=== PATIENT | male | born 1945 | race Caucasian/White ===

== ENCOUNTER 2022-02-08 12:40 | Outpatient (CLI) | payer MEDICARE ==
[2022-02-08 14:03] LABS: ALT (SGPT) 12 U/L (8-55); AST (SGOT) 20 U/L (5-34); Albumin 4.2 g/dL (3.4-4.8); Alkaline Phosphatase 83 U/L (40-110); Anion Gap 12 mmol/L (10-20); BUN (Urea Nitrogen) 13 mg/dL (8.4-25.7); Bilirubin, Total 0.6 mg/dL (0.2-1.2); Calc. Creatinine Clearance 0 mL/min (70-130); Calcium 8.9 mg/dL (7.8-10.44); Carbon Dioxide 24 mmol/L (23-31); Chloride 104 mmol/L (98-107); Globulin 3.1 g/dL (2.4-3.5); Glucose 92 mg/dL (83-110); Potassium 4.4 mmol/L (3.5-5.1); Protein, Total 7.3 g/dL (5.8-8.1); Sodium 136 mmol/L (136-145)
[2022-02-08 14:06] LABS: #Eosinphils 0.2 10x3/uL (0.0-0.5); #Monocytes 0.8 10x3/uL (0.0-1.1); #Neutrophils 4.8 10x3/uL (1.5-8.4); %Basophils 0.6 % (0.0-2.0); %Eosinophils 2.5 % (0.0-6.0); %Lymphocytes 19.2 % (18.0-47.0); %Monocytes 10.5 % (0.0-10.0); %Neutrophils 66.9 % (40.0-75.0); Hemoglobin 9.2 g/dL (13.5-17.5); Mean Corpuscular HGB CONC 29.7 g/dL (32.0-36.0); Mean Corpuscular Volume 70.8 fl (81.2-95.1); Platelet Count 315 10x3/uL (150-450); RBC Distribution Width 15.5 % (11.5-14.5); Red Blood Cell (RBC) Count 4.38 10x6/uL (4.32-5.72); White Blood Cell (WBC) Count 7.1 10x3/uL (3.5-10.5)
[2022-02-08 14:35] LABS: Hypochromia SLIGHT = 6-15 cells (100X) (0-5/hpf); Ovalocytes SLIGHT = 2-5 cells (100X) (0-1/hpf); Platelet Morphology Comment Appears Adequate
[2022-02-08 23:35] LABS: SARS-CoV-2 PCR by NAA Not Detected (NotDetected)
== END 2022-02-08 12:41 | disposition home or self-care (01) ==
LOC: LABBT 12:40
PROVIDERS: ATTEND Internal Medicine Cardiovascular Disease
DX: Z01.812 Encounter for preprocedural laboratory examination (principal); Z20.822 Contact with and (suspected) exposure to COVID-19
CPT/HCPCS: 80053; 85025; U0003; U0005

== ENCOUNTER 2022-02-23 16:32 | Outpatient (CLI) | payer MEDICARE ==
[2022-02-23 17:15] LABS: #Basophils 0.1 10x3/uL (0.0-0.2); #Eosinphils 0.2 10x3/uL (0.0-0.5); #Monocytes 0.7 10x3/uL (0.0-1.1); #Neutrophils 3.3 10x3/uL (1.5-8.4); %Basophils 0.9 % (0.0-2.0); %Eosinophils 3.3 % (0.0-6.0); %Lymphocytes 22.4 % (18.0-47.0); %Monocytes 12.7 % (0.0-10.0); %Neutrophils 60.5 % (40.0-75.0); Hemoglobin 8.5 g/dL (13.5-17.5); Mean Corpuscular HGB CONC 29.1 g/dL (32.0-36.0); Mean Corpuscular Hemoglobin 20.9 pg (27.0-33.0); Mean Corpuscular Volume 71.9 fl (81.2-95.1); Mean Platelet Volume 9.4 fl (7.4-10.4); Platelet Count 276 10x3/uL (150-450); RBC Distribution Width 16.6 % (11.5-14.5); Red Blood Cell (RBC) Count 4.06 10x6/uL (4.32-5.72); White Blood Cell (WBC) Count 5.4 10x3/uL (3.5-10.5)
[2022-02-23 17:29] LABS: Anisocytosis SLIGHT = 6-15 cells (100X) (0-5/hpf); Hypochromia SLIGHT = 6-15 cells (100X) (0-5/hpf); Polychromasia SLIGHT = 2-3 cells (100X) (0-2/hpf)
[2022-02-23 17:30] LABS: Elliptocytes SLIGHT = 2-5 cells (100X) (0-1/hpf); Ovalocytes SLIGHT = 2-5 cells (100X) (0-1/hpf)
[2022-02-23 17:31] LABS: Platelet Morphology Comment Appears Adequate; Schistocytes SLIGHT = 2-5 cells (100X) (0-1/hpf)
[2022-02-23 17:33] LABS: Iron 16 ug/dL (65-175); Iron Binding Capacity, Total 475 mcg/dL (261-462)
[2022-02-24 00:25] LABS: SARS-CoV-2 PCR by NAA Not Detected (NotDetected)
== END 2022-02-23 16:33 | disposition home or self-care (01) ==
LOC: LABBT 16:32
PROVIDERS: ATTEND Internal Medicine Gastroenterology
DX: Z01.812 Encounter for preprocedural laboratory examination (principal); Z20.822 Contact with and (suspected) exposure to COVID-19
CPT/HCPCS: 82728; 82784; 83540; 83550; 85025; U0003; U0005

== ENCOUNTER → 2022-02-27 | Day surgery (SDC) | payer MEDICARE, OTHER ==
[2022-02-24 10:09] VITALS: BMI 25.0
[~2022-02-27] MED LIST: Iron, Sodium Ferric Gluconate 250 MG in Sodium Chloride 0.9% 250 ML 250 ML IVPB SCH; Lidocaine 1% PF 5 ML VIAL ONE; PROPOFOL 200 MG/20 ML VIAL ONE
[2022-02-27 11:36] LABS: ALT (SGPT) 12 U/L (8-55); AST (SGOT) 21 U/L (5-34); Albumin 3.7 g/dL (3.4-4.8); Alkaline Phosphatase 75 U/L (40-110); Anion Gap 10 mmol/L (10-20); BUN (Urea Nitrogen) 6 mg/dL (8.4-25.7); Bilirubin, Total 0.6 mg/dL (0.2-1.2); Calc. Creatinine Clearance 105 mL/min (70-130); Calcium 8.7 mg/dL (7.8-10.44); Carbon Dioxide 25 mmol/L (23-31); Chloride 105 mmol/L (98-107); Globulin 2.8 g/dL (2.4-3.5); Glucose 101 mg/dL (83-110); Potassium 4.1 mmol/L (3.5-5.1); Protein, Total 6.5 g/dL (5.8-8.1); Sodium 136 mmol/L (136-145)
[2022-03-04 18:35] LABS: EliA Celiac New Method **** NEW METHOD ****
== END | disposition home or self-care (01) ==
LOC: SDC 06:53
PROVIDERS: ATTEND Internal Medicine Gastroenterology
PROC: 0W3P8ZZ Control Bleeding in Gastrointestinal Tract, Via Natural or Artificial Opening Endoscopic (ICD-10-PCS; principal; 2022-02-27)
PROC: 0DB98ZX Excision of Duodenum, Via Natural or Artificial Opening Endoscopic, Diagnostic (ICD-10-PCS; 2022-02-27)
PROC: 0DB98ZX Excision of Duodenum, Via Natural or Artificial Opening Endoscopic, Diagnostic (ICD-10-PCS; 2022-02-27)
PROC: 0W3P8ZZ Control Bleeding in Gastrointestinal Tract, Via Natural or Artificial Opening Endoscopic (ICD-10-PCS; 2022-02-27)
PROC: 0DBK8ZX Excision of Ascending Colon, Via Natural or Artificial Opening Endoscopic, Diagnostic (ICD-10-PCS; 2022-02-27)
PROC: 0DBL8ZX Excision of Transverse Colon, Via Natural or Artificial Opening Endoscopic, Diagnostic (ICD-10-PCS; 2022-02-27)
PROC: 0DBM8ZX Excision of Descending Colon, Via Natural or Artificial Opening Endoscopic, Diagnostic (ICD-10-PCS; 2022-02-27)
PROC: 0DBH8ZX Excision of Cecum, Via Natural or Artificial Opening Endoscopic, Diagnostic (ICD-10-PCS; 2022-02-27)
PROC: 3E0H8KZ Introduction of Other Diagnostic Substance into Lower GI, Via Natural or Artificial Opening Endoscopic (ICD-10-PCS; 2022-02-27)
DX: K31.811 Angiodysplasia of stomach and duodenum with bleeding (principal); K31.89 Other diseases of stomach and duodenum; C18.6 Malignant neoplasm of descending colon; D12.2 Benign neoplasm of ascending colon; D12.3 Benign neoplasm of transverse colon; D12.5 Benign neoplasm of sigmoid colon; K57.30 Diverticulosis of large intestine without perforation or abscess without bleeding; D50.9 Iron deficiency anemia, unspecified; R59.0 Localized enlarged lymph nodes; Z87.891 Personal history of nicotine dependence; Z79.899 Other long term (current) drug therapy
CPT/HCPCS: 36415; 71260; 74177; 80053; 82378; 83516; 88305; J2704; J2916; J7050

== ENCOUNTER 2022-03-10 15:18 | Outpatient (CLI) | payer MEDICARE, OTHER ==
[2022-03-11 12:39] LABS: SARS-CoV-2 PCR by NAA Not Detected (NotDetected)
== END 2022-03-10 15:19 | disposition home or self-care (01) ==
LOC: LABBT 15:18
PROVIDERS: ATTEND Internal Medicine Cardiovascular Disease
DX: Z20.822 Contact with and (suspected) exposure to COVID-19 (principal)
CPT/HCPCS: U0003; U0005

== ENCOUNTER 2022-03-13 05:28 | Day surgery (SDC) | payer MEDICARE, OTHER ==
[2022-03-10 13:01] VITALS: BMI 24.2
[2022-03-13] MEDS ORDERED: Nitroglycerin 100MG/250ML BOT 250 ML ONE (06:42)
[2022-03-13] MEDS ORDERED: Verapamil 5 MG/2 ML VIAL ONE (06:42)
[2022-03-13] MEDS ORDERED: Lidocaine 1% (PF) 30 ML VIAL ONE (06:42)
[2022-03-13] MEDS ORDERED: Heparin 10,000 UNITS/ 10 ML VIAL ONE (06:42)
[2022-03-13] MEDS ORDERED: Midazolam HCl 2 mg/2 ml Vial ONE (07:46)
[2022-03-13] MEDS ORDERED: Fentanyl 100 MCG/2 ML VIAL ONE (07:46)
[2022-03-13] MEDS ORDERED: Iopamidol 370 76% 100 ML VIAL ONE (09:29)
== END 2022-03-13 13:23 | disposition home or self-care (01) ==
LOC: CCL 05:28
PROVIDERS: ATTEND Internal Medicine Cardiovascular Disease
PROC: 4A023N7 Measurement of Cardiac Sampling and Pressure, Left Heart, Percutaneous Approach (ICD-10-PCS; principal; 2022-03-13)
PROC: B2111ZZ Fluoroscopy of Multiple Coronary Arteries using Low Osmolar Contrast (ICD-10-PCS; 2022-03-13)
DX: R06.09 Other forms of dyspnea (principal); R94.39 Abnormal result of other cardiovascular function study; I25.10 Atherosclerotic heart disease of native coronary artery without angina pectoris; E78.5 Hyperlipidemia, unspecified; K90.0 Celiac disease; C18.9 Malignant neoplasm of colon, unspecified; D63.0 Anemia in neoplastic disease; Z87.891 Personal history of nicotine dependence; Z79.899 Other long term (current) drug therapy
CPT/HCPCS: 85347; 93458; C1753; C1769; J1644; J2001; J2250; J3010; Q9967

== ENCOUNTER 2022-03-24 11:16 | Outpatient (CLI) | payer MEDICARE, OTHER ==
[2022-03-24 12:44] LABS: #Eosinphils 0.1 10x3/uL (0.0-0.5); #Monocytes 0.7 10x3/uL (0.0-1.1); #Neutrophils 2.6 10x3/uL (1.5-8.4); %Basophils 0.4 % (0.0-2.0); %Eosinophils 2.8 % (0.0-6.0); %Monocytes 13.7 % (0.0-10.0); %Neutrophils 51.9 % (40.0-75.0); Hemoglobin 11.8 g/dL (13.5-17.5); Mean Corpuscular HGB CONC 30.6 g/dL (32.0-36.0); Mean Corpuscular Hemoglobin 23.9 pg (27.0-33.0); Mean Corpuscular Volume 77.9 fl (81.2-95.1); Mean Platelet Volume 9.7 fl (7.4-10.4); Platelet Count 230 10x3/uL (150-450); RBC Distribution Width 25.3 % (11.5-14.5); Red Blood Cell (RBC) Count 4.94 10x6/uL (4.32-5.72)
[2022-03-24 12:54] LABS: Anion Gap 17 mmol/L (10-20); BUN (Urea Nitrogen) 15 mg/dL (8.4-25.7); Calc. Creatinine Clearance 0 mL/min (70-130); Calcium 9.2 mg/dL (7.8-10.44); Carbon Dioxide 23 mmol/L (23-31); Chloride 103 mmol/L (98-107); Glucose 93 mg/dL (83-110); Potassium 4.5 mmol/L (3.5-5.1); Sodium 138 mmol/L (136-145)
[2022-03-24 23:49] LABS: SARS-CoV-2 PCR by NAA Not Detected (NotDetected)
== END 2022-03-24 11:17 | disposition home or self-care (01) ==
LOC: LABBT 11:16
PROVIDERS: ATTEND Surgery
DX: Z01.812 Encounter for preprocedural laboratory examination (principal); C18.9 Malignant neoplasm of colon, unspecified; Z20.822 Contact with and (suspected) exposure to COVID-19
CPT/HCPCS: 80048; 85025; U0003; U0005

== ENCOUNTER 2022-03-24 11:45 | Inpatient (IN) | payer MEDICARE, OTHER ==
[2022-03-27 11:25] VITALS: BMI 24.2
[2022-03-29] MEDS ORDERED: Fentanyl 100 MCG/2 ML VIAL ONE ×2 (11:10→15:22)
[2022-03-29] MEDS ORDERED: Midazolam HCl 2 mg/2 ml Vial ONE (11:10)
[2022-03-29] MEDS ORDERED: fentaNYL Citrate/PF 100 MCG/2 ML SYRINGE ONE ×2 (12:09→14:48)
[2022-03-29] MEDS ORDERED: CEFAZOLIN 2 GM VIAL ONE (12:18)
[2022-03-29] MEDS ORDERED: Sodium Chloride 0.9% 100 ML ONE (12:18)
[2022-03-29] MEDS ORDERED: CEFAZOLIN 1 GM VIAL ONE (12:18)
[2022-03-29] MEDS ORDERED: Lidocaine 1% PF 5 ML VIAL ONE (12:33)
[2022-03-29] MEDS ORDERED: Glycopyrrolate 0.2 MG/ML 5 ML SYRINGE ONE (12:33)
[2022-03-29] MEDS ORDERED: Rocuronium Bromide 10 MG/ML (10ML VIAL) ONE (12:33)
[2022-03-29] MEDS ORDERED: PROPOFOL 200 MG/20 ML VIAL ONE (12:33)
[2022-03-29] MEDS ORDERED: Ondansetron PF 4 MG/2 ML Vial ONE (12:33)
[2022-03-29] MEDS ORDERED: Bupivacaine HCl 0.5%/Epinephrine 1:200,000/PF 30 ml Vial ONE (12:33)
[2022-03-29] MEDS ORDERED: ePHEDrine 50 MG/ML VIAL ONE (12:33)
[2022-03-29] MEDS ORDERED: PHENYLEPHRINE-NS 100 MCG/ML 10 ML SYRINGE ONE (12:33)
[2022-03-29] MEDS ORDERED: cefOXitin 2 GM VIAL ONE ×2 (12:43→14:39)
[2022-03-29] MEDS ORDERED: Phenylephrine 10 MG/ML VIAL ONE (13:02)
[2022-03-29] MEDS ORDERED: Nitroglycerin 2% Ointment 1 INCH/1 GM Packet ONE (13:02)
[2022-03-29] MEDS ORDERED: hydrALAZINE 20 MG/ML VIAL SLOW IVP PRN (15:23)
[2022-03-29] MEDS ORDERED: Fentanyl 100 MCG/2 ML VIAL SLOW IVP PRN (15:23)
[2022-03-29] MEDS ORDERED: Ondansetron PF 4 MG/2 ML Vial IVP PRN (15:23)
[2022-03-29] MEDS ORDERED: Promethazine HCl 25 MG/ML VIAL IM PRN (15:23)
[2022-03-29] MEDS: D5 1/2 NS w/20 mEq KCL 1,000 ML IV SCH (16:56)
[2022-03-29] MEDS: HYDROcodone/Acetaminophen 7.5/325 mg Tablet PO PRN (18:18)
[2022-03-29] MEDS: Famotidine 20 MG TAB PO SCH (20:39)
[2022-03-29] MEDS: Famotidine/PF 20 mg/2ml Vial SLOW IVP SCH (20:39)
[2022-03-30] MEDS: cefOXitin 2 GM in Sodium Chloride 0.9% 100 ML IVPB SCH ×2 (00:29→07:10)
[2022-03-30] MEDS: D5 1/2 NS w/20 mEq KCL 1,000 ML IV SCH ×4 (00:30→20:13)
[2022-03-30 06:28] LABS: Mean Corpuscular HGB CONC 30.5 g/dL (32.0-36.0); Mean Corpuscular Hemoglobin 24.5 pg (27.0-31.0); Mean Corpuscular Volume 80.3 fL (78.0-98.0); Mean Platelet Volume 9.5 fL (7.4-10.4); Platelet Count 158 thou/uL (130-400); RBC Distribution Width 21.9 % (11.5-14.5); White Blood Cell (WBC) Count 7.7 thou/uL (4.8-10.8)
[2022-03-30 06:39] LABS: Anion Gap 9 mmol/L (10-20); BUN (Urea Nitrogen) 6 mg/dL (8.4-25.7); Calc. Creatinine Clearance 107 mL/min (70-130); Calcium 8.3 mg/dL (7.8-10.44); Carbon Dioxide 25 mmol/L (23-31); Chloride 102 mmol/L (98-107); Glucose 160 mg/dL (83-110); Potassium 3.8 mmol/L (3.5-5.1); Sodium 132 mmol/L (136-145)
[2022-03-30 06:41] LABS: #Lymphocytes 0.9 thou/uL (1.20-3.40); #Monocytes 0.8 thou/uL (0.11-0.59); #Neutrophils 6.1 thou/uL (1.40-6.50); %Eosinophils 0.2 % (0.0-10.0); %Lymphocytes 11.2 % (21.0-51.0); %Monocytes 9.8 % (0.0-10.0); %Neutrophils 78.7 % (42.0-75.0)
[2022-03-30] MEDS: HYDROcodone/Acetaminophen 7.5/325 mg Tablet PO PRN ×2 (07:13→16:38)
[2022-03-30] MEDS: Famotidine 20 MG TAB PO SCH ×2 (07:59→20:12)
[2022-03-30] MEDS: Famotidine/PF 20 mg/2ml Vial SLOW IVP SCH ×2 (07:59→20:13)
[2022-03-30] MEDS: Enoxaparin Sodium 40 MG/0.4 ML SYRINGE SC SCH (07:59)
[2022-03-30] MEDS ORDERED: Acetaminophen 650 MG Suppository PR PRN (15:16)
[2022-03-31] MEDS: Enoxaparin Sodium 40 MG/0.4 ML SYRINGE SC SCH (07:55)
[2022-03-31] MEDS: Famotidine 20 MG TAB PO SCH ×2 (07:55→20:47)
[2022-03-31] MEDS: Famotidine/PF 20 mg/2ml Vial SLOW IVP SCH ×2 (07:56→20:47)
[2022-03-31] MEDS: D5 1/2 NS w/20 mEq KCL 1,000 ML IV SCH ×2 (08:40→22:50)
[2022-03-31] MEDS: HYDROcodone/Acetaminophen 7.5/325 mg Tablet PO PRN (15:45)
[2022-04-01] MEDS: Famotidine/PF 20 mg/2ml Vial SLOW IVP SCH (09:25)
[2022-04-01] MEDS: Famotidine 20 MG TAB PO SCH (09:30)
[2022-04-01] MEDS: Enoxaparin Sodium 40 MG/0.4 ML SYRINGE SC SCH (09:30)
[2022-04-01 14:10] VITALS: BP 118/76; TEMP 98.5
[2022-04-01] MEDS: D5 1/2 NS w/20 mEq KCL 1,000 ML IV SCH (14:18)
== END 2022-04-01 15:13 | disposition home or self-care (01) | DRG 331 ==
LOC: SURG A 03-29 10:03 → SJJU 03-29 16:16
PROVIDERS: ADMIT Surgery; ATTEND Surgery
PROC: 0DTG4ZZ Resection of Left Large Intestine, Percutaneous Endoscopic Approach (ICD-10-PCS; principal; 2022-03-29)
PROC: 8E0W4CZ Robotic Assisted Procedure of Trunk Region, Percutaneous Endoscopic Approach (ICD-10-PCS; 2022-03-29)
DX: C18.6 Malignant neoplasm of descending colon (principal); Z20.822 Contact with and (suspected) exposure to COVID-19; I25.10 Atherosclerotic heart disease of native coronary artery without angina pectoris; Z79.899 Other long term (current) drug therapy; Z90.49 Acquired absence of other specified parts of digestive tract; Z87.891 Personal history of nicotine dependence
CPT/HCPCS: 36415; 36416; 80048; 85025; 88309; 93005; 93010; A4649; J0690; J0694; J1650; J2250; J2370; J2405; J2704; J3010; J3480; J3490

== ENCOUNTER 2022-04-27 15:51 | Outpatient (CLI) | payer MEDICARE, OTHER ==
[2022-04-27 17:55] LABS: #Eosinphils 0.2 10x3/uL (0.0-0.5); #Monocytes 0.7 10x3/uL (0.0-1.1); %Basophils 0.4 % (0.0-2.0); %Eosinophils 3.1 % (0.0-6.0); %Lymphocytes 34.5 % (18.0-47.0); %Monocytes 14.6 % (0.0-10.0); Hemoglobin 12.4 g/dL (13.5-17.5); Mean Corpuscular HGB CONC 31.2 g/dL (32.0-36.0); Mean Corpuscular Hemoglobin 25.1 pg (27.0-33.0); Mean Corpuscular Volume 80.2 fl (81.2-95.1); Mean Platelet Volume 10.2 fl (7.4-10.4); Platelet Count 199 10x3/uL (150-450); RBC Distribution Width 20.5 % (11.5-14.5); Red Blood Cell (RBC) Count 4.95 10x6/uL (4.32-5.72); White Blood Cell (WBC) Count 4.8 10x3/uL (3.5-10.5)
[2022-04-27 17:56] LABS: #Neutrophils 2.3 10x3/uL (1.5-8.4); %Neutrophils 47.4 % (40.0-75.0)
[2022-04-27 18:20] LABS: ALT (SGPT) 8 U/L (8-55); AST (SGOT) 16 U/L (5-34); Albumin 4.2 g/dL (3.4-4.8); Alkaline Phosphatase 79 U/L (40-110); Anion Gap 15 mmol/L (10-20); BUN (Urea Nitrogen) 13 mg/dL (8.4-25.7); Bilirubin, Total 0.4 mg/dL (0.2-1.2); Calc. Creatinine Clearance 0 mL/min (70-130); Calcium 9.2 mg/dL (7.8-10.44); Carbon Dioxide 25 mmol/L (23-31); Chloride 104 mmol/L (98-107); Globulin 3.2 g/dL (2.4-3.5); Glucose 117 mg/dL (83-110); Potassium 4.6 mmol/L (3.5-5.1); Protein, Total 7.4 g/dL (5.8-8.1); Sodium 139 mmol/L (136-145)
== END 2022-04-27 15:52 | disposition home or self-care (01) ==
LOC: LABBT 15:51
PROVIDERS: ATTEND Internal Medicine Cardiovascular Disease
DX: Z01.812 Encounter for preprocedural laboratory examination (principal); Z20.822 Contact with and (suspected) exposure to COVID-19
CPT/HCPCS: 80053; 85025; U0003; U0005

== ENCOUNTER → 2022-05-01 | Day surgery (SDC) | payer MEDICARE, OTHER ==
[2022-04-28 11:13] VITALS: BMI 22.5
== END | disposition home or self-care (01) ==
LOC: SDC 05:30
PROVIDERS: ATTEND Internal Medicine Cardiovascular Disease
DX: R06.00 Dyspnea, unspecified (principal); Z79.899 Other long term (current) drug therapy; Z91.018 Allergy to other foods; Z53.9 Procedure and treatment not carried out, unspecified reason

== ENCOUNTER 2022-05-03 05:57 | Day surgery (SDC) | payer MEDICARE, OTHER ==
[2022-05-03] MEDS ORDERED: Heparin 10,000 UNITS/ 10 ML VIAL ONE (07:53)
[2022-05-03] MEDS ORDERED: Verapamil 5 MG/2 ML VIAL ONE (07:53)
[2022-05-03] MEDS ORDERED: Lidocaine 1% PF 5 ML VIAL ONE (07:53)
[2022-05-03] MEDS ORDERED: Nitroglycerin 100MG/250ML BOT 250 ML ONE (07:53)
[2022-05-03] MEDS ORDERED: Fentanyl 100 MCG/2 ML VIAL ONE (08:41)
[2022-05-03] MEDS ORDERED: Atropine Sulfate 1 mg/10 ml Syringe ONE (09:14)
[2022-05-03] MEDS ORDERED: Clopidogrel Bisulfate 300 MG TAB ONE (09:37)
[2022-05-03] MEDS ORDERED: Iopamidol 370 76% 100 ML VIAL ONE (11:27)
== END 2022-05-03 15:51 | disposition home or self-care (01) ==
LOC: CCL 05:57
PROVIDERS: ATTEND Internal Medicine Cardiovascular Disease
PROC: 027034Z Dilation of Coronary Artery, One Artery with Drug-eluting Intraluminal Device, Percutaneous Approach (ICD-10-PCS; principal; 2022-05-03)
PROC: 4A023N7 Measurement of Cardiac Sampling and Pressure, Left Heart, Percutaneous Approach (ICD-10-PCS; 2022-05-03)
PROC: B2111ZZ Fluoroscopy of Multiple Coronary Arteries using Low Osmolar Contrast (ICD-10-PCS; 2022-05-03)
DX: R06.09 Other forms of dyspnea (principal); R94.39 Abnormal result of other cardiovascular function study; R53.83 Other fatigue; R06.02 Shortness of breath; I25.10 Atherosclerotic heart disease of native coronary artery without angina pectoris; D64.9 Anemia, unspecified; E78.5 Hyperlipidemia, unspecified; Z85.038 Personal history of other malignant neoplasm of large intestine; Z87.891 Personal history of nicotine dependence; Z79.899 Other long term (current) drug therapy; Z91.018 Allergy to other foods; Z90.49 Acquired absence of other specified parts of digestive tract
CPT/HCPCS: 85347; 92928; 92978; 99152; 99153; C1725; C1753; C1769; C1874; C9600; J0461; J1644; J3010; Q9967

== ENCOUNTER 2024-05-20 07:03 | Day surgery (SDC) | payer MEDICARE, OTHER ==
[2024-05-16 13:12] VITALS: BMI 25.0
[2024-05-20] MEDS ORDERED: Lidocaine 1% PF 5 ML VIAL ONE (07:21)
[2024-05-20] MEDS ORDERED: PROPOFOL 40 ML ONE (07:21)
[2024-05-20] MEDS ORDERED: GLYCOPYRROLATE/PF 0.2 MG/ML VIAL ONE (08:15)
[2024-05-20] MEDS ORDERED: PROPOFOL 20 ML ONE (08:40)
[2024-05-20] MEDS ORDERED: PHENYLEPHRINE-NS 100 MCG/ML 10 ML SYRINGE ONE (08:49)
== END 2024-05-20 10:04 | disposition home or self-care (01) ==
LOC: SDC 07:03
PROVIDERS: ATTEND Internal Medicine Gastroenterology
PROC: 0DJ08ZZ Inspection of Upper Intestinal Tract, Via Natural or Artificial Opening Endoscopic (ICD-10-PCS; principal; 2024-05-20)
PROC: 0W3P8ZZ Control Bleeding in Gastrointestinal Tract, Via Natural or Artificial Opening Endoscopic (ICD-10-PCS; 2024-05-20)
DX: K31.819 Angiodysplasia of stomach and duodenum without bleeding (principal); K55.20 Angiodysplasia of colon without hemorrhage; K90.0 Celiac disease; D50.9 Iron deficiency anemia, unspecified; Z98.0 Intestinal bypass and anastomosis status; Z90.49 Acquired absence of other specified parts of digestive tract; Z87.891 Personal history of nicotine dependence; Z85.038 Personal history of other malignant neoplasm of large intestine; Z91.02 Food additives allergy status
CPT/HCPCS: 43239; 43255; 45382; J2704; J3490; 88305

== ENCOUNTER 2025-07-01 05:55 | Day surgery (SDC) | payer MEDICARE, OTHER ==
[2025-06-30 11:39] VITALS: BMI 25.0
[2025-07-01] MEDS ORDERED: PROPOFOL 40 ML ONE (06:53)
[2025-07-01] MEDS ORDERED: PROPOFOL 20 ML ONE (08:02)
== END 2025-07-01 09:17 | disposition home or self-care (01) ==
LOC: SDC 05:55
PROVIDERS: ATTEND Internal Medicine Gastroenterology
PROC: 0DB98ZX Excision of Duodenum, Via Natural or Artificial Opening Endoscopic, Diagnostic (ICD-10-PCS; principal; 2025-07-01)
PROC: 0DB58ZX Excision of Esophagus, Via Natural or Artificial Opening Endoscopic, Diagnostic (ICD-10-PCS; 2025-07-01)
PROC: 0DJD8ZZ Inspection of Lower Intestinal Tract, Via Natural or Artificial Opening Endoscopic (ICD-10-PCS; 2025-07-01)
DX: Z12.11 Encounter for screening for malignant neoplasm of colon (principal); K20.80 Other esophagitis without bleeding; K31.A19 Gastric intestinal metaplasia without dysplasia, unspecified site; K29.80 Duodenitis without bleeding; K90.0 Celiac disease; Z87.891 Personal history of nicotine dependence; Z95.5 Presence of coronary angioplasty implant and graft; Z85.038 Personal history of other malignant neoplasm of large intestine; Z90.49 Acquired absence of other specified parts of digestive tract; Z91.018 Allergy to other foods
CPT/HCPCS: 43239; G0105; 88305; J2704